=== PATIENT | female | born 2000 | race American Indian/Alaskan Native ===

== ENCOUNTER 2022-04-11 12:12 | Emergency (ER) | payer SELFPAY ==
[2022-04-11] MEDS ORDERED: ONDANSETRON 4 MG ODT TAB PO ONE (12:36)
[2022-04-11] MEDS ORDERED: METOCLOPRAMIDE 10 MG/2 ML INJ IV ONE (13:15)
[2022-04-11] MEDS ORDERED: MORPHINE 4 MG/1 ML INJ IV ONE (13:15)
[2022-04-11] MEDS ORDERED: SODIUM CHLORIDE 0.9% 1000 ML 1,000 ML IV ONE (13:15)
[2022-04-11] MEDS ORDERED: diphenhydrAMINE 50 MG/ML VIAL IV ONE (13:17)
[2022-04-11 14:02] LABS: Hematocrit 37.6 % (30.3-42.9); Hemoglobin 12.6 gm/dl (10.1-14.3); Mean Corpuscular HGB Conc 34 % (30-34); Mean Corpuscular Volume 79 fl (79-97); Platelet Count 318 K/mm3 (140-440); Red Blood Count 4.79 M/mm3 (3.65-5.03); Red Cell Distribution Width 15.5 % (13.2-15.2)
[2022-04-11 14:17] LABS: INR 0.91 (0.87-1.13)
--- NOTE | 2022-04-11 15:19 | Emergency Department Report ---
ED Abdominal Pain HPI - General Chief Complaint: Abdominal Pain Stated Complaint: ABD CRAMPS/VOMITNG Source: EMS Mode of arrival: Ambulatory Limitations: No Limitations - History of Present Illness Initial Comments: 21-year-old female presents to the ED complaining of vomiting and abdominal pain. She states that she is current on her menstrual cycle. States that she has history of dysmenorrhea. States she normally take Motrin for relief but today no relief. She states pain is a current 10 out of 10. She states vomiting x4 today .patient denies any chest pain shortness of breath fever chills. Patient is alert and oriented x3. No acute distress noted .No ill appearance noted. MD Complaint: abdominal pain -: This morning Location: diffuse Severity scale (0 -10): 7 Quality: cramping Consistency: intermittent Improves With: nothing Worsens With: nothing Associated Symptoms: denies other symptoms - Related Data Previous Rx's Medication Instructions Recorded Last Taken Type Ketorolac [Toradol] 10 mg PO Q6H PRN 5 Days #20 tab 04/11/22 Unknown Rx Ondansetron (Nf) [Zofran TAB] 8 mg PO Q8HR PRN 3 Days #12 tablet 04/11/22 Unknown Rx Allergies Allergy/AdvReac Type Severity Reaction Status Date / Time banana Allergy Itching Verified 04/11/22 12:20 ED Review of Systems ROS: Stated complaint: ABD CRAMPS/VOMITNG Other details as noted in HPI Constitutional: denies: chills, fever Eyes: denies: eye pain, eye discharge, vision change ENT: denies: ear pain, throat pain Respiratory: denies: cough, shortness of breath, wheezing Cardiovascular: denies: chest pain, palpitations Endocrine: no symptoms reported Gastrointestinal: abdominal pain, vomiting. denies: nausea, diarrhea Genitourinary: denies: urgency, dysuria, discharge Musculoskeletal: denies: back pain, joint swelling, arthralgia Skin: denies: rash, lesions Neurological: denies: headache, weakness, paresthesias Psychiatric: denies: anxiety, depression Hematological/Lymphatic: denies: easy bleeding, easy bruising ED Past Medical Hx - Past Medical History Previous Medical History?: No - Surgical History Past Surgical History?: No - Social History Smoking Status: Unknown if ever smoked - Medications Home Medications: Home Medications Medication Instructions Recorded Confirmed Last Taken Type Ketorolac [Toradol] 10 mg PO Q6H PRN 5 Days #20 tab 04/11/22 Unknown Rx Ondansetron (Nf) [Zofran TAB] 8 mg PO Q8HR PRN 3 Days #12 tablet 04/11/22 Unknown Rx ED Physical Exam - General Limitations: No Limitations General appearance: alert, in no apparent distress - Head Head exam: Present: atraumatic, normocephalic - Eye Eye exam: Present: normal appearance - ENT ENT exam: Present: mucous membranes moist - Neck Neck exam: Present: normal inspection - Respiratory Respiratory exam: Present: normal lung sounds bilaterally. Absent: respiratory distress - Cardiovascular Cardiovascular Exam: Present: regular rate, normal rhythm. Absent: systolic murmur, diastolic murmur, rubs, gallop - GI/Abdominal GI/Abdominal exam: Present: soft, normal bowel sounds - Extremities Exam Extremities exam: Present: normal inspection - Back Exam Back exam: Present: normal inspection - Neurological Exam Neurological exam: Present: alert, oriented X3 - Psychiatric Psychiatric exam: Present: normal affect, normal mood - Skin Skin exam: Present: warm, dry, intact, normal color. Absent: rash ED Course Vital Signs 04/11/22 12:21 Temperature 98.5 F Pulse Rate 70 Respiratory 18 Rate Blood Pressure 133/90 O2 Sat by Pulse 100 Oximetry ED Medical Decision Making - Lab Data Result diagrams: 04/11/22 13:32 04/11/22 13:32 - Medical Decision Making 21-year-old female presents to the ED complaining of vomiting and abdominal pain. She states that she is current on her menstrual cycle. States that she has history of dysmenorrhea. States she normally take Motrin for relief but today no relief. She states pain is a current 10 out of 10. She states vomiting x4 today .patient denies any chest pain shortness of breath fever chills. Patient is alert and oriented x3. No acute distress noted .No ill appearance noted. Given morphine 4 mg IV, Reglan 10mg IV and Benadryl 25 mg IV. Toradal 15mg Iv . patient states pain is a 0 out of 10. Patient ultrasound shows no abnormality. Physical examination is unremarkable. Rechecked the patient is resting quietly quietly and comfortable and feeling better. I discussed the results of diagnostic study, my clinical impression and the plan for further treatment with the patient. Patient agrees with plan and discharge at this present time. All question addressed. I have given the patient instruction regarding a diagnosis ,expectation ,follow- up and return precaution. I explained to the patient that emergent condition may arise and to return to the ED for new worsen and any new persisting condition. I have explained the importance of following up with the primary care physician or referral physician listed below has instructed. The patient verbalized understan ding of discharge instruction. Abnormal Lab Results 04/11/22 04/11/22 04/11/22 13:32 13:32 13:32 WBC RBC Hgb Hct MCV MCH MCHC RDW Plt Count PT 13.2 INR 0.91 Sodium Potassium Chloride Carbon Dioxide Anion Gap BUN Creatinine Estimated GFR BUN/Creatinine Ratio Glucose Calcium Total Bilirubin AST ALT Alkaline Phosphatase Total Protein Albumin Albumin/Globulin Ratio Lipase 16 HCG, Quant < 2 Urine Color Urine Turbidity Urine pH Ur Specific [place]we[place] Urine Protein Urine Glucose (UA) Urine Ketones Urine Blood Urine Nitrite Urine Bilirubin Urine Urobilinogen Ur Leukocyte Esterase Urine WBC (Auto) Urine RBC (Auto) U Epithel Cells (Auto) Ur Renal Epithelial Cell Urine Mucus 04/11/22 04/11/22 04/11/22 13:32 13:32 14:46 WBC 14.5 H RBC 4.79 Hgb 12.6 Hct 37.6 MCV 79 MCH 26 L MCHC 34 RDW 15.5 H Plt Count 318 PT INR Sodium 141 Potassium 3.9 Chloride 106.5 Carbon Dioxide 21 L Anion Gap 17 BUN 6 L Creatinine 0.6 Estimated GFR > 60 BUN/Creatinine Ratio 10 Glucose 80 Calcium 9.7 Total Bilirubin 0.40 AST 16 ALT 13 Alkaline Phosphatase 86 Total Protein 8.5 H Albumin 4.7 Albumin/Globulin Ratio 1.2 Lipase HCG, Quant Urine Color Yellow Urine Turbidity Clear Urine pH 6.0 Ur Specific [place] 1.017 Urine Protein <15 mg/dl Urine Glucose (UA) Neg Urine Ketones 80 Urine Blood Neg Urine Nitrite Neg Urine Bilirubin Neg Urine Urobilinogen < 2.0 Ur Leukocyte Esterase Neg Urine WBC (Auto) < 1.0 Urine RBC (Auto) < 1.0 U Epithel Cells (Auto) 5.0 Ur Renal Epithelial Cell 1 Urine Mucus 2+ Critical care attestation.: If time is entered above; I have spent that time in minutes in the direct care of this critically ill patient, excluding procedure time. ED Disposition Clinical Impression: Dysmenorrhea Disposition: HOME / SELF CARE / HOMELESS Is pt being admited?: No Does the pt Need Aspirin: No Condition: Stable Instructions: Dysmenorrhea, [id number], Abdominal Pain (ED) Additional Instructions: Medication has prescribed Return to the ED for any worsening symptom Prescriptions: Ketorolac [Toradol] 10 mg PO Q6H PRN 5 Days #20 tab PRN Reason: Pain Ondansetron (Nf) [Zofran TAB] 8 mg PO Q8HR PRN 3 Days #12 tablet PRN Reason: Nausea And Vomiting Referrals: [facility] [Provider Group] - 3-5 Days PRIMARY CARE, [Primary Care Provider] - 3-5 Days Forms: Work/School Release Form(ED)
[2022-04-11 15:44] LABS: Bilirubin,Urine NEG (Negative); Blood,Urine NEG (Negative); Color,Urine Yellow (Yellow); Protein,Urine <15 mg/dL mg/dL (Negative); Urobilinogen,Urine < 2.0 mg/dL (<2.0)
[2022-04-11 16:00] LABS: RBC,Urine < 1.0 /HPF (0.0-6.0); WBC,Urine < 1.0 /HPF (0.0-6.0)
[2022-04-11 16:18] LABS: Alanine Aminotransferase 13 units/L (7-56); Albumin 4.7 g/dL (3.9-5); Blood Urea Nitrogen 6 mg/dL (7-17); Calcium 9.7 mg/dL (8.4-10.2); Hemolysis Index 3
[2022-04-11 16:27] LABS: BUN/Creatinine Ratio 10
[2022-04-11 16:52] LABS: Mucus,Urine 2+ /HPF; Renal Epithelial Cells,Urine 1 /LPF
--- NOTE | 2022-04-11 16:55 | Ultrasound Report ---
ULTRASOUND PELVIS INDICATION: pelvic pain. TECHNIQUE: Transvaginal. Duplex Color Doppler used: Yes. COMPARISON: None available FINDINGS: Uterus: Present. Size: 8.7 x 3.4 x 3.6 cm. Endometrial complex: Normal measuring 0.22 cm. Mass lesions: None. Additional findings: None. Right Ovary -- Normal. Blood flow: Normal. Cyst or mass: None. Left Ovary-- Normal. Blood flow: Normal. Cyst or mass: None. Urinary Bladder: Normal. Free Fluid: Minimal cul-de-sac. Additional Findings: None. IMPRESSION: 1. Uterus, ovaries and adnexa are unremarkable. 2. Minimal pelvic free fluid. Signer Name: Todd Wade MD Signed: 04/11/2022 4:51 PM Workstation Name: [email or web address]
[2022-04-11] MEDS ORDERED: KETOROLAC 30 MG/1 ML INJ IV ONE (17:16)
[2022-04-11 17:56] VITALS: BP 128/90
== END 2022-04-11 17:55 | disposition home or self-care (01) ==
LOC: ED 12:12
DX: N94.6 Dysmenorrhea, unspecified (principal)
CPT/HCPCS: 36415; 76830; 80053; 81001; 83690; 84702; 85027; 85610; 96361; 96374; 96375; 99284; J1200; J1885; J2270; J2765; J7030; J3490; Q0162